=== PATIENT | female | born 1985 | race Caucasian/White ===

== ENCOUNTER 2017-05-07 13:31 | Inpatient (IN) ==
[2017-05-10] MEDS ORDERED: CALCIUM CARBONATE Chewable 500mg TABLET PO PRN ×2 (06:15→19:33)
[2017-05-10] MEDS ORDERED: LIDOCAINE 1% (10mg/ml) 2mL INJ PF SDV ID PRN (06:15)
[2017-05-10] MEDS ORDERED: OXYTOCIN DRIP 30 UNIT/500 ML ML IV PRN (06:15)
[2017-05-10] MEDS ORDERED: MAG-AL + SIM ORAL LIQUID 30ml PO PRN ×2 (06:15→19:33)
[2017-05-10] MEDS ORDERED: D5LR 1,000 ML IV PRN (06:15)
[2017-05-10] MEDS ORDERED: METHYLERGONOVINE 0.2 MG/ML INJECTION IM PRN (06:15)
[2017-05-10] MEDS ORDERED: ACETAMINOPHEN 500 MG TABLET PO PRN ×2 (06:15→19:33)
[2017-05-10] MEDS ORDERED: CARBOPROST 250 MCG/ML INJECTION IM PRN (06:15)
[2017-05-10 06:37] VITALS: BMI 30.9
[2017-05-10] MEDS: LR 1,000 ML IV PRN ×3 (07:40→12:45)
--- NOTE | 2017-05-10 10:04 | Anesthesia Preoperative Report ---
Anesthesia Epidural/Spinal Rec - Date and Time Date: 05/10/17 Procedure: Labor Epidural (pt is going to attempt labor without epidural) Plan: Epidural (possibly) - Vital Signs Vital Signs: Temperature 98.3 F 05/10/17 07:25 Pulse Rate 81 05/10/17 07:25 Respiratory Rate 16 05/10/17 07:25 Blood Pressure 97/53 05/10/17 07:25 Oxygen Delivery Method Room Air /Para: P:1 - Medictaions & Allergies Inpatient Medications: Current Medications Acetaminophen (Tylenol) 500 - 1,000 mg PO Q4H PRN PRN Reason: Pain Al Hydroxide/Mg Hydroxide (Maalox Plus) 30 ml PO Q3H PRN PRN Reason: Indigestion Calcium Carbonate (Tums) 500 - 1,000 mg PO Q2H PRN PRN Reason: Indigestion Carboprost Tromethamine (Hemabate) 250 mcg IM O PRN PRN Reason: .Downtime Lactated Ringer's (Lactated Ringers) 1,000 mls @ 1,000 mls/hr IV .Q1H PRN PRN Reason: as directed Last Infusion: 05/10/17 09:30 Dose: Infused Oxytocin (Pitocin Drip) 30 unit in 500 mls @ 2 mls/hr IV .Q24H PRN; Protocol PRN Reason: Induction/Augmentation Last Admin: 05/10/17 07:41 Dose: 2 mls/hr Dextrose/Lactated Ringer's (Dextrose 5%-Lactated Ringers) 1,000 mls @ 125 mls/ hr IV .Q8H PRN PRN Reason: Labor Last Admin: 05/10/17 07:40 Dose: 125 mls/hr Lidocaine HCl (Xylocaine-Mpf 1% Vial) 0.2 mg ID O PRN PRN Reason: IV Start Methylergonovine Maleate (Methergine) 0.2 mg IM O PRN Misoprostol (Cytotec) 800 mcg RI ONCE PRN Allergies/Adverse Reactions: Allergies Allergy/AdvReac Type Severity Reaction Status Date / Time No Known Allergies Allergy Unverified 01/11/17 18:13 - Home Medications Home Medications: Home Medications Medication Instructions Recorded Confirmed Type Albuterol Sulfate (Albuterol INH Q4H PRN #0 inhaler 12/13/14 History Sulfate Hfa) Pnv95/Ferrous Fumarate/FA 1 tab PO DAILY #90 tab 06/28/16 05/10/17 History [ Tablet] Acetaminophen [Tylenol] 1 tab PO PRN #30 tab 01/11/17 05/10/17 History diphenhydrAMINE HCl [Benadryl] 1 cap PO PRN #30 cap 01/11/17 05/10/17 History Albuterol Inhaler [Ventolin Hfa 90 2 puff ORAL INH O PRN 05/10/17 05/10/17 History mcg/actuation] Fluticasone Propionate [Flonase 1 spray CHARAN PRN 05/10/17 05/10/17 History Allergy Relief] PredniSONE [Deltasone] 50 mg PO PRN 05/10/17 05/10/17 History - Medical History Respiratory: Reports: Asthma (has not needed inhaler during this ) Cardiovascular: DENIES: Hypertension Gastrointestional: Reports: Nausea or Vomiting Present (morning sickness throughout) DENIES: Gastroesophageal Reflux Disease Neuro/Musculoskeletal: Denies: Cerebrovascular Accident Renal/Endocrine: DENIES: Diabetes Mellitus Type 2 Other History: Reports: Anesthesia Reactions (post dural puncture headache with blood patch, last epidural) - Surgical History Anesthesia Reactions: None Hx Family Anesthesia Reaction: No History of Motion Sickness: No - Social History Second Hand Exposure: No Substance Use Type: does not use Alcohol Intake Frequency: does not drink - Pertinent Findings Lab Data: CBC and BMP 05/10/17 06:31 - Physical Exam Respiratory Exam: lungs clear Cardiovascular Exam: regular rate and rhythm - Airway Assessment Mallampati Score: II TMD: 3 Fingerbreadths Neck Extension: good Overall Assessment: may be difficult intubation - ASA ASA Score: 2 - Discussion Discussion: Discussed risks/options/alternatives of anesthesia and questions answered. Patient consents. Nursing pain assessment noted. Anesthesia Discussion: spouse Attestation Statement: Prior to the delivery of any anesthetic medication, I examined the patient, developed the plan, obtained the patient's consent and discussed the risk and benefits of the procedure with the patient/guardian.
[2017-05-10] MEDS ORDERED: NALBUPHINE 10 MG/ML INJECTION IVP PRN (10:23)
[2017-05-10] MEDS ORDERED: ROPIVACAINE 1% 10MG/ML INJ 200 MG, SUFentanil 50 MCG in NS 100 ML EPI PRN (12:35)
[2017-05-10] MEDS ORDERED: DiphenhydrAMINE 50 MG/ML INJECTION IVP PRN (12:35)
[2017-05-10] MEDS ORDERED: NALOXONE 0.4 MG/ML INJECTION IVP PRN (12:35)
[2017-05-10] MEDS ORDERED: ONDANSETRON 4 MG/2 ML INJECTION IVP PRN (12:35)
[2017-05-10] MEDS ORDERED: BENZOCAINE 20% SPRAY 0.5 ML MM ONE (19:33)
[2017-05-10] MEDS ORDERED: HYDROCORTISONE 2.5% CREAM 30gm RECTALLY PRN (19:33)
[2017-05-10] MEDS ORDERED: OXYTOCIN DRIP 30 UNIT/500 ML ML IV SCH (19:33)
[2017-05-10] MEDS ORDERED: SALINE FLUSH 10ml SYRINGE IVF PRN (19:33)
[2017-05-10] MEDS ORDERED: DiphenhydrAMINE 25 MG CAPSULE PO PRN (19:33)
[2017-05-10] MEDS: IBUPROFEN 800 MG TABLET PO PRN (23:47)
[2017-05-11] MEDS: IBUPROFEN 800 MG TABLET PO PRN ×2 (07:24→16:21)
[2017-05-11] MEDS ORDERED: DOCUSATE CALCIUM 240 MG CAPSULE PO SCH (09:00)
--- NOTE | 2017-05-11 10:51 | Labor and Delivery Note ---
DATE OF DELIVERY: 05/10/2017 HISTORY 1. 32-year-old female, G3, P1 at 40.3 weeks gestational age. 2. Pitocin induction of labor for postdates. 3. Epidural block. 4. Artificial rupture of membranes. 5. IUPM. 6. Spontaneous vaginal delivery. 7. OP rotating to OA. 8. Female , Apgars, 3865 g (Gladis Meza). 9. Prolonged third stage. DESCRIPTION This is a patient of mine who was scheduled for induction next week but the patient requested at her appointment yesterday that the induction be moved up to today. Initially, her cervix was 2 cm. Artificial rupture of membranes occurred prior to an epidural at 10:16 a.m. Pitocin reached a maximum of 26 milliunits a minute. Patient eventually made it to complete dilation but was in the OP presentation. I allowed her to labor down for a while and then we began pushing. The infant was transverse at that point in time and rotated OA with pushing. Spontaneous vaginal delivery occurred over an intact perineum. Infant was bulb suctioned after delivery of the head and then again after delivery of the body. Cord was allowed to drain for a minute and a half before it was doubly clamped and cut. The infant's father cut the cord. The was initially placed on the mother's abdomen. The placenta took 46 minutes to deliver but eventually it released and delivered. Visually it was intact. I did a finger swipe and it also felt negative for any retained products. We had trouble getting the Pitocin restarted initially so I gave a dose of Methergine IM and then the Pitocin was restarted and we had good firmness of the uterus. At time of dictation mother and infant are doing well. Placenta will be held. Maternal blood type is O+, rubella is immune. At the 30-minute jennifer I had them to a type and screen and keep the surgical team in-house until we delivered the placenta. At time of dictation mother and infant are doing well. [facility]
--- NOTE | 2017-05-11 12:37 | Anesthesia Postoperative Note ---
- Date and Time Date: 05/11/17 Time: 12:36 - Status Patient Participated in Evaluation: Patient Participated in Person Vital Signs: Temperature 98.3 F 05/11/17 06:00 Pulse Rate 81 05/11/17 06:00 Respiratory Rate 16 05/11/17 06:00 Blood Pressure 114/55 05/11/17 06:00 Pulse Oximetry 99 05/11/17 06:00 Oxygen Delivery Method Room Air Respiratory Function: Airway Patent Cardiovascular Function: Regular Pulse Mental Status: Alert and Oriented Pain Intensity: 0 Hydration: Taking PO Fluids Complications During Recover: None Apparent Post Anesthesia Care Notes: full sensation has returned. slight tenderness at needle insertion site, but otherwise no complaints - Follow-Up Instructions Instructions: Per Surgeon
--- NOTE | 2017-05-11 13:20 | OB/GYN Progress Note ---
OB-PP Progress Note - General PPD1 Maternal Group B Strep: Negative Maternal blood type: O+ Maternal Rubella Status: Immune - Subjective Date: 05/11/17 Lochia: Minimal Pain: contolled Voiding: voiding Nausea or Vomiting Present: No - Objective Vital Signs: Last Vital Signs Temp 98.3 F 05/11/17 06:00 Pulse 81 05/11/17 06:00 Resp 16 05/11/17 06:00 BP 114/55 05/11/17 06:00 Pulse Ox 99 05/11/17 06:00 General: alert and oriented Respiratory: non-labored Abdomen: fundus firm, tender Edema: none Laboratory: Laboratory Results - last 24 hr 05/10/17 05/11/17 06:31 07:16 WBC 16.9 H D RBC 3.30 L Hgb 8.9 L D Hct 28.1 L D MCV 85.2 MCH 27.0 MCHC 31.7 RDW Std Deviation 43.2 Plt Count 180 MPV 11.3 Blood Type O Positive Antibody Screen Negative - Assessment Assessment: SP, - Plan Plan: routine care, discharge home (Pt desires dismissal toady if is able to be discharged home. )
--- NOTE | 2017-05-11 13:25 | Discharge Instructions ---
Discharge Plan - Med Rec/Dispo Referrals/Follow Up: Matt Giron MD [Physician] - Surinder Instructions: Vaginal Delivery Prescriptions: New Hydrocodone/APAP 5/325 [Ethridge 5/325] 1 - 2 tab PO Q4H PRN #30 tablet PRN Reason: Pain Ibuprofen [Motrin] 800 mg PO Q8H PRN #30 tablet PRN Reason: Pain Continue Albuterol Sulfate (Albuterol Sulfate Hfa) INH Q4H PRN #0 inhaler PRN Reason: SHORTNESS OF AIR/WHEEZING diphenhydrAMINE HCl [Benadryl] 1 cap PO PRN #30 cap Albuterol Inhaler [Ventolin Hfa 90 mcg/actuation] 2 puff ORAL INH O PRN PRN Reason: Shortness Of Air/Wheezing PredniSONE [Deltasone] 50 mg PO PRN Pnv95/Ferrous Fumarate/FA [ Tablet] 1 tab PO DAILY #90 tab Fluticasone Propionate [Flonase Allergy Relief] 1 spray CHARAN PRN Discontinued Acetaminophen [Tylenol] 1 tab PO PRN #30 tab - Disposition 01 Discharged Home, Self-Care
[2017-05-11] MEDS: HYDROCODONE/APAP 5mg/325mg TABLET PO PRN ×2 (16:19→19:00)
[2017-05-11 21:01] VITALS: BP 113/69; PULSE 91; RESP 18; TEMP 98.3; O2SAT 100
== END 2017-05-11 20:40 | disposition home or self-care (01) | DRG 775 ==
LOC: MC 05-10 06:10
PROVIDERS: ADMIT Obstetrics & Gynecology; ATTEND Obstetrics & Gynecology